=== PATIENT | male | born 1990 ===

== ENCOUNTER 2019-01-01 20:18 | Emergency (ER) | payer BC ==
[2019-01-01 20:38] VITALS: RESP 16; TEMP 98.6
[2019-01-01 22:04] LABS: VENOUS BLOOD GAS BASE EXCESS 2.6 mmol/L (0.0-2.0); VENOUS BLOOD GAS PCO2 52 mmHg (40-60); VENOUS BLOOD GAS PO2 19 mm/Hg (30-55); VENOUS BLOOD PH 7.36 (7.32-7.43)
[2019-01-01 22:05] LABS: BASO % 0.5 % (0.0-2.0); EOS # 0.2 K/uL (0.0-0.7); EOS % 2.9 % (0.0-4.0); HEMOGLOBIN 15.8 g/dL (12.0-18.0); LYMPH # 1.4 K/uL (1.0-4.3); LYMPH % 24.5 % (20.0-40.0); MEAN CELL VOLUME 92.4 fl (80.0-94.0); MEAN CORPUSCULAR HEMOGLOBIN 32.4 pg (27.0-31.0); MONO # 0.3 K/uL (0.0-0.8); NEUT # 3.8 K/uL (1.8-7.0); NEUT % 66.1 % (50.0-75.0); NRBC % 0.1 % (0.0-0.0); RBC 4.87 Mil/uL (4.40-5.90); WHITE BLOOD COUNT 5.7 K/uL (4.8-10.8)
[2019-01-01 22:17] LABS: ALBUMIN 5.2 g/dL (3.5-5.0); ALT/SGPT 36 U/L (21-72); AST/SGOT 36 U/L (17-59); BLOOD UREA NITROGEN 12 mg/dl (9-20); CALCIUM 9.8 mg/dL (8.4-10.2); GFR NON-AFRICAN AMERICAN > 60
--- NOTE | 2019-01-01 23:00 | ED PDOC ---
HPI: General Adult Time Seen by Provider: 01/01/19 21:09 Chief Complaint (Nursing): Medical Clearance Chief Complaint (Provider): Medical Clearance History Per: Patient History/Exam Limitations: no limitations Onset/Duration Of Symptoms: Days (x3 weeks) Additional Complaint(s): 28 y/o male with history of Graves Disease presents with 3 weeks of weakness and fatigue associated with dizziness and nausea. Patient states that an hour prior to arrival he received an email from his apartment building's property management stating that they have detected high levels of carbon monoxide and the fire department was present trying to resolve the issue. Patient states that property management did not want to disclose how high the CO levels were. Patient wanted to come to the ER due to his symptoms and for documentation of his CO levels at this time. He denies any chest pain, SOB, or vomiting. Past Medical History Reviewed: Historical Data, Nursing Documentation, Vital Signs Vital Signs: Last Vital Signs Temp 98.6 F 01/01/19 20:37 Pulse 100 H 01/01/19 20:37 Resp 16 01/01/19 20:37 BP 158/96 H 01/01/19 20:37 Pulse Ox 99 01/01/19 20:37 Primary Care Provider: DoctorHarjinder - Medical History PMH: Graves' Disease - Family History Family History: States: Unknown Family Hx - Social History Alcohol: None Drugs: Denies - Allergies Allergies/Adverse Reactions: Allergies Allergy/AdvReac Type Severity Reaction Status Date / Time No Known Allergies Allergy Verified 01/01/19 21:19 Review of Systems ROS Statement: Except As Marked, All Systems Reviewed And Found Negative Constitutional: Positive for: Weakness Cardiovascular: Negative for: Chest Pain Respiratory: Negative for: Shortness of Breath Gastrointestinal: Positive for: Nausea. Negative for: Vomiting Neurological: Positive for: Dizziness. Negative for: Headache Physical Exam - Reviewed Nursing Documentation Reviewed: Yes Vital Signs Reviewed: Yes - Physical Exam Appears: Positive for: Non-toxic, No Acute Distress Head Exam: Positive for: ATRAUMATIC, NORMAL INSPECTION, NORMOCEPHALIC Skin: Positive for: Normal Color, Warm, DRY Eye Exam: Positive for: EOMI, Normal appearance, PERRL Cardiovascular/Chest: Positive for: Regular Rate, Rhythm. Negative for: Murmur Respiratory: Positive for: Normal Breath Sounds. Negative for: Respiratory Distress Gastrointestinal/Abdominal: Positive for: Normal Exam, Bowel Sounds (normal), Soft. Negative for: Tenderness Extremity: Positive for: Normal ROM. Negative for: Pedal Edema, Deformity Neurological/Psych: Positive for: Awake, Alert, Normal Tone, Symmetric/Intact Strength, Oriented (x3). Negative for: Motor/Sensory Deficits - Laboratory Results Result Diagrams: 01/01/19 21:50 01/01/19 21:50 Lab Results: pO2 19 mm/Hg (30-55) L 01/01/19 22:00 ABG Carboxyhemoglobin 0.3 % (0.5-1.5) L 01/01/19 22:00 POC ABG HHb (Measured) 63.9 % (0.0-5.0) H 01/01/19 22:00 ABG Methemoglobin 3.1 % (0.0-3.0) H 01/01/19 22:00 VBG pH 7.36 (7.32-7.43) 01/01/19 22:00 VBG pCO2 52 mmHg (40-60) 01/01/19 22:00 VBG HCO3 24.8 mmol/L 01/01/19 22:00 VBG O2 Sat (Calc) 33.9 % (40-65) L 01/01/19 22:00 VBG Base Excess 2.6 mmol/L (0.0-2.0) H 01/01/19 22:00 VBG Hgb O2 Saturation 32.7 % (95.0-98.0) L 01/01/19 22:00 Hemoglobin 16.5 g/dL (11.7-17.4) 01/01/19 22:00 Total Bilirubin 1.2 mg/dl (0.2-1.3) 01/01/19 21:50 AST 36 U/L (17-59) 01/01/19 21:50 ALT 36 U/L (21-72) 01/01/19 21:50 Alkaline Phosphatase 42 U/L (38-126) 01/01/19 21:50 Total Protein 7.8 G/DL (6.3-8.2) 01/01/19 21:50 Albumin 5.2 g/dL (3.5-5.0) H 01/01/19 21:50 Globulin 2.6 gm/dL (2.2-3.9) 01/01/19 21:50 Albumin/Globulin Ratio 2.0 (1.0-2.1) 01/01/19 21:50 - ECG O2 Sat by Pulse Oximetry: 99 (RA) Pulse Ox Interpretation: Normal Medical Decision Making Medical Decision Making: Initial Plan: CBC CMP TSH VBG with Co-ox 22:00 CBC and CMP were normal. Carboxy-hemoglobin was 0.3 23:11 Patient has no signs of CO poisoning. Patient is stable for discharge. Patient was informed of the results and he states he feels better knowing that his carboxy hemoglobin was normal. Patient was given return to ED precautions. He states understanding and agrees with plan. Scribe Attestation: Documented by Darian Ulrich, acting as a scribe for Paul Rosas MD. Provider Scribe Attestation: All medical record entries made by the Scribe were at my direction and personally dictated by me. I have reviewed the chart and agree that the record accurately reflects my personal performance of the history, physical exam, medical decision making, and the department course for this patient. I have also personally directed, reviewed, and agree with the discharge instructions and disposition. Disposition - Clinical Impression Clinical Impression: Carbon monoxide exposure - Patient ED Disposition Is Patient to be Admitted: No Counseled Patient/Family Regarding: Diagnosis - Disposition Disposition: Routine/Home Disposition Time: 22:45 Condition: GOOD Instructions: General (DC) Forms: [facility] (Irish) - POA Present On Arrival: None
[2019-01-01 23:12] VITALS: BP 145/95; PULSE 90
[2019-01-02 00:33] VITALS: O2SAT 99
== END 2019-01-01 23:15 | disposition home or self-care (01) ==
LOC: H.ER 20:18
DX: Z57.5 Occupational exposure to toxic agents in other industries (principal)